=== PATIENT | female | born 1955 | race Hispanic/Latino ===

== ENCOUNTER 2018-06-03 08:17 | Outpatient (CLI) | payer BC ==
--- NOTE | 2018-06-03 08:38 | RAD ---
XR Chest Pa Lat @ [facility] History:Dyspnea Comparison: 12/31/2017 study. Findings: Heart size and mediastinum are within normal limits. The lungs are clear of infiltrates. Th ere are arthritic changes of the spine. Impression: No active intrathoracic disease.
== END 2018-06-03 08:18 | disposition home or self-care (01) ==
LOC: RAD 08:17
PROVIDERS: ATTEND Internal Medicine Critical Care Medicine
DX: R06.00 Dyspnea, unspecified (principal)
CPT/HCPCS: 71046